=== PATIENT | male | born 1980 | race Caucasian/White ===

== ENCOUNTER 2024-04-02 20:23 | Emergency (ER) | payer OTHER ==
[~2024-04-02] VITALS: Wt 88.5 kg
[2024-04-02] MEDS ORDERED: LEVOTHYROXINE88 MCG PO (20:38)
[2024-04-02] MEDS ORDERED: XYZAL5 M1 PO (20:40)
== END 2024-04-02 22:15 | disposition home or self-care (01) ==
LOC: ED 20:23
DX: S46.912A Strain of unspecified muscle, fascia and tendon at shoulder and upper arm level, left arm, initial encounter (principal); V43.52XA Car driver injured in collision with other type car in traffic accident, initial encounter; Y93.I9 Activity, other involving external motion; Y92.488 Other paved roadways as the place of occurrence of the external cause; Y99.8 Other external cause status